=== PATIENT | male | born 1990 | race Caucasian/White ===

== ENCOUNTER 2018-05-03 05:33 | Emergency (ER) | payer BC ==
[2018-05-03 05:53] VITALS: TEMP 98.9; O2SAT 99
[2018-05-03 06:34] LABS: BASO # 0.1 K/uL (0.0-0.2); BASO % 0.6 % (0.0-2.0); EOS # 0.1 K/uL (0.0-0.7); EOS % 0.7 % (0.0-4.0); LYMPH # 2.4 K/uL (1.0-4.3); LYMPH % 21.3 % (20.0-40.0); MEAN CELL VOLUME 88.9 fL (80.0-94.0); MEAN CORPUSCULAR HEMOGLOBIN 29.5 pg (27.0-31.0); MEAN CORPUSCULAR HGB CONC 33.2 g/dL (33.0-37.0); MEAN PLATELET VOLUME 9.2 fL (7.2-11.7); MONO # 0.9 K/uL (0.0-0.8); MONO % 8.4 % (0.0-10.0); NEUT # 7.7 K/uL (1.8-7.0); RBC 5.42 Mil/uL (4.40-5.90); RED CELL DISTRIBUTION WIDTH 14.1 % (11.5-14.5); WHITE BLOOD COUNT 11.2 K/uL (4.8-10.8)
[2018-05-03 06:37] LABS: URINE BILIRUBIN NEGATIVE (NEGATIVE); URINE BLOOD NEGATIVE (NEGATIVE); URINE CLARITY Clear (Clear); URINE COLOR Yellow (YELLOW); URINE GLUCOSE (UA) NORMAL (Normal); URINE LEUKOCYTE ESTERASE NEG Leu/uL (Negative); URINE PROTEIN NEGATIVE (NEGATIVE); URINE UROBILINOGEN NORMAL mg/dL (0.2-1.0)
[2018-05-03 06:46] LABS: ALB/GLOB RATIO 1.6 (1.0-2.1); ALBUMIN 4.7 g/dL (3.5-5.0); ALT/SGPT 15 U/L (21-72); AST/SGOT 25 U/L (17-59); BLOOD UREA NITROGEN 13 mg/dL (9-20); GFR NON-AFRICAN AMERICAN > 60; LIPASE 33 U/L (23-300)
--- NOTE | 2018-05-03 06:52 | C.PDOC ---
History Of Present Illness 27 year old male presents to the ED c/o lower abdominal pain associated with constipation that started last night. Patient denies fever, chills, nausea, vomit, diarrhea, dysuria, hematuria. Time Seen by Provider: 05/03/18 06:03 Chief Complaint (Nursing): Abdominal Pain History Per: Patient History/Exam Limitations: no limitations Onset/Duration Of Symptoms: Days Current Symptoms Are (Timing): Still Present Location Of Pain/Discomfort: Epigastric, LLQ Quality Of Discomfort: "Pain" Associated Symptoms: denies: Nausea, Vomiting, Diarrhea, Urinary Symptoms Recent travel outside of the [place]: No Additional History Per: Patient Past Medical History Reviewed: Historical Data, Nursing Documentation, Vital Signs Vital Signs: Last Vital Signs Temp 98.9 F 05/03/18 05:49 Pulse 89 05/03/18 05:49 Resp 20 05/03/18 05:49 BP 109/71 05/03/18 05:49 Pulse Ox 99 05/03/18 05:49 - Medical History PMH: No Chronic Diseases Surgical History: Appendectomy - [facility] Procedures LAPAROSCOP APPENDECTOMY (03/04/13) VACCINATION NEC (03/04/13) Family History: States: Unknown Family Hx - Social History Hx Tobacco Use: No Hx Alcohol Use: No Hx Substance Use: No - Immunization History Hx Tetanus Toxoid Vaccination: No Hx Influenza Vaccination: No Hx Pneumococcal Vaccination: No Review Of Systems Constitutional: Negative for: Fever, Chills Cardiovascular: Negative for: Chest Pain Respiratory: Negative for: Shortness of Breath Gastrointestinal: Positive for: Abdominal Pain. Negative for: Nausea, Vomiting, Diarrhea Musculoskeletal: Negative for: Back Pain Skin: Negative for: Rash Neurological: Negative for: Weakness, Numbness, Headache, Dizziness Physical Exam - Physical Exam Appears: Non-toxic, No Acute Distress Skin: Normal Color, Warm, Dry Head: Atraumatic, Normacephalic Eye(s): bilateral: Normal Inspection Oral Mucosa: Moist Neck: Normal ROM, Supple Chest: Symmetrical Cardiovascular: Rhythm Regular Respiratory: Normal Breath Sounds, No Rales, No Rhonchi, No Wheezing Gastrointestinal/Abdominal: Soft, Tenderness (LLQ, epigastric), No Guarding, No Rebound Back: No CVA Tenderness Extremity: Normal ROM, No Tenderness, No Swelling Neurological/Psych: Oriented x3, Normal Speech, Normal Cognition Gait: Steady ED Course And Treatment - Laboratory Results Result Diagrams: 05/03/18 06:32 05/03/18 06:32 Lab Results: Total Bilirubin 0.7 mg/dL (0.2-1.3) 05/03/18 06:32 AST 25 U/L (17-59) 05/03/18 06:32 ALT 15 U/L (21-72) L D 05/03/18 06:32 Alkaline Phosphatase 66 U/L (38-126) 05/03/18 06:32 Total Protein 7.5 g/dL (6.3-8.3) 05/03/18 06:32 Albumin 4.7 g/dL (3.5-5.0) 05/03/18 06:32 Globulin 2.9 gm/dL (2.2-3.9) 05/03/18 06:32 Albumin/Globulin Ratio 1.6 (1.0-2.1) 05/03/18 06:32 Lipase 33 U/L (23-300) 05/03/18 06:32 Urine Color Yellow (YELLOW) 05/03/18 06:32 Urine Clarity Clear (Clear) 05/03/18 06:32 Urine pH 5.0 (5.0-8.0) 05/03/18 06:32 Ur Specific [place] 1.023 (1.003-1.030) 05/03/18 06:32 Urine Protein Negative mg/dL (NEGATIVE) 05/03/18 06:32 Urine Glucose (UA) Normal mg/dL (Normal) 05/03/18 06:32 Urine Ketones Negative mg/dL (NEGATIVE) 05/03/18 06:32 Urine Blood Negative (NEGATIVE) 05/03/18 06:32 Urine Nitrate Negative (NEGATIVE) 05/03/18 06:32 Urine Bilirubin Negative (NEGATIVE) 05/03/18 06:32 Urine Urobilinogen Normal mg/dL (0.2-1.0) 05/03/18 06:32 Ur Leukocyte Esterase Neg [place]/uL (Negative) 05/03/18 06:32 Urine WBC (Auto) < 1 /hpf (0-5) 05/03/18 06:32 Urine RBC (Auto) < 1 /hpf (0-3) 05/03/18 06:32 O2 Sat by Pulse Oximetry: 99 (ON RA) Pulse Ox Interpretation: Normal - Other Rad Obstructive series X-Ray X-Ray: Interpreted by Me, Viewed By Me Interpretation: Moderate stool impaction Progress Note: Plan: - Labs. - Obstrcitive series X-Ray. - UA. - Lactulose 20 gm PO. Labs/ and Imaging resulst were discussed with patient, patient had moderate stool impaction. Patient was given lactulose in the ED and advised to follow a high fiber diet. Reassessment Condition: Improved Disposition Counseled Patient/Family Regarding: Diagnosis, Need For Followup, Rx Given - Disposition Referrals: [facility] [Outside] Disposition: HOME/ ROUTINE Disposition Time: 06:49 Condition: STABLE Additional Instructions: Come mucho fibra Sigue con doctor de medicina general [place] todos las medicinas Regresa al emergencia si fiebre, dolor terrible, juwan del recto or peor Prescriptions: Ibuprofen [Motrin] 600 mg PO Q6H #20 tab Polyethylene Glycol 3350 [Miralax] 17 gm PO DAILY #1 bottle Instructions: High Fiber Diet, Constipation, Adult (DC) Forms: [facility] (I[place]ic), Work Excuse Print Language: AZERI - Clinical Impression Clinical Impression: Constipation, Abdominal pain - PA / WINDING INSPECTOR / Resident Statement MD/DO has reviewed & agrees with the documentation as recorded. - Scribe Statement The provider has reviewed the documentation as recorded by the Scribe Austen Allen All medical record entries made by the Scribe were at my direction and personally dictated by me. I have reviewed the chart and agree that the record accurately reflects my personal performance of the history, physical exam, medical decision making, and the department course for this patient. I have also personally directed, reviewed, and agree with the discharge instructions and disposition.
[2018-05-03 07:02] VITALS: BP 110/70; PULSE 80; RESP 14
--- NOTE | 2018-05-03 08:37 | RAD ---
Date of service: 05/03/2018 PROCEDURE: Radiographs of the chest and abdomen (obstructive series) HISTORY: abd pain COMPARISON: No prior. TECHNIQUE: AP radiograph of the chest, with upright and supine radiographs of the abdomen. FINDINGS: CHEST: Lungs: Clear. Cardiovascular: Normal size heart. No pulmonary vascular congestion. No aortic atherosclerotic calcification present Pleura: No pleural fluid. No pneumothorax. Other findings: None. ABDOMEN AND PELVIS: Bowel: Mild stool retention noted. No evidence of mechanical obstruction. Free air: None. Bones: Mild right sacroiliac sclerotic arthrosis. Right L4-5 facet hypertrophic arthrosis Other findings: None. IMPRESSION: No pulmonary infiltrate.. No evidence of mechanical bowel obstruction. Mild stool retention. Other findings as above.
== END 2018-05-03 07:02 | disposition home or self-care (01) ==
LOC: C.ER 05:33
DX: K59.00 Constipation, unspecified (principal); R10.9 Unspecified abdominal pain